=== PATIENT | male | born 1980 | race Caucasian/White ===

== ENCOUNTER 2023-02-09 03:35 | Emergency (ER) | payer OTHER, BC ==
[~2023-02-09] VITALS: Ht 170.2 cm; Wt 86.2 kg
[2023-02-09 03:35] VITALS: BP 123/75; PULSE 89; RESP 15; TEMP 98.3; O2SAT 95
== END 2023-02-09 03:45 ==
LOC: MED 03:35
DX: F10.129 Alcohol abuse with intoxication, unspecified (principal); Z02.89 Encounter for other administrative examinations; V89.2XXA Person injured in unspecified motor-vehicle accident, traffic, initial encounter; Y93.89 Activity, other specified; Y92.89 Other specified places as the place of occurrence of the external cause; Y99.8 Other external cause status
CPT/HCPCS: 99283